=== PATIENT | male | born 1980 | race African-American/Black ===

== ENCOUNTER 2016-09-28 09:49 | Emergency (ER) | payer SELFPAY ==
[2016-09-28] MEDS ORDERED: predniSONE 20 MG Tab PO ONE (09:57)
[2016-09-28] MEDS ORDERED: Albuterol/Ipratropium 3.0-0.5 MG/3 ML Neb Soln NEB ONE ×2 (09:57→10:41)
--- NOTE | 2016-09-28 10:03 | EDM.PDOC ---
ED HPI GENERAL MEDICAL PROBLEM - General Chief Complaint: Respiratory Problem Stated Complaint: SOB Time Seen by Provider: 09/28/16 09:55 Source of Information: Reports: Patient History Limitations: Reports: No Limitations - History of Present Illness INITIAL COMMENTS - FREE TEXT/NARRATIVE: The patient presents with shortness of breath. He says this started last night. He has a history of asthma and he uses an inhaler. He denies fever or chills. He has a slight cough when he is trying to clear his throat. He has no abdominal pain, nausea or vomiting. He does have some chest tightness. Onset: Gradual Duration: Day(s): (Last night) Location: Reports: Chest Quality: Reports: Other (Tightness) Severity: Moderate Improves with: Reports: None Worsens with: Reports: Movement Associated Symptoms: Reports: Chest Pain, Cough, Shortness of Breath. Denies: Fever/Chills, Nausea/Vomiting - Related Data Allergies Allergy/AdvReac Type Severity Reaction Status Date / Time morphine Allergy Rash Verified 09/28/16 09:55 Home Meds: Home Meds Albuterol Sulfate [Proventil Hfa] 2 puff INH Q6H PRN 09/28/16 [History] Albuterol [IJD: Albuterol HFA] 2 puff .XX Q6HR PRN #8 gm 09/28/16 [Rx] Prednisone [IJD: predniSONE] 40 mg PO WITHBREAKFAST #10 tab 09/28/16 [Rx] ED ROS GENERAL - Review of Systems Review Of Systems: See Below Constitutional: Reports: No Symptoms HEENT: Reports: No Symptoms Respiratory: Reports: Shortness of Breath, Wheezing, Cough Cardiovascular: Reports: Chest Pain (Tightness) Endocrine: Reports: No Symptoms GI/Abdominal: Reports: No Symptoms : Reports: No Symptoms Musculoskeletal: Reports: No Symptoms ED EXAM, GENERAL - Physical Exam Exam: See Below Exam Limited By: No Limitations General Appearance: Alert, No Apparent Distress Ears: Normal External Exam Nose: Normal Inspection Head: Atraumatic, Normocephalic Neck: Normal Inspection Respiratory/Chest: Respiratory Distress (Mild), Wheezing Cardiovascular: Regular Rate, Rhythm, No Edema, No Murmur GI/Abdominal: Soft, Non-Tender, No Organomegaly, No Mass Extremities: Normal Inspection Course - Vital Signs Last Recorded V/S: Last Vital Signs Temp 96.9 F 09/28/16 09:52 Pulse 97 09/28/16 09:52 Resp 20 09/28/16 09:52 BP 137/79 09/28/16 09:52 Pulse Ox 95 09/28/16 10:04 - Orders/Labs/Meds Orders: Active Orders 24 hr Category Date Time Status RT Aerosol Therapy [RC] ASDIRECTED Care 09/28/16 09:57 Active RT Aerosol Therapy [RC] ASDIRECTED Care 09/28/16 10:41 Active Meds: Medications Discontinued Medications Generic Name Dose Route Start Last Admin Trade Name Freq PRN Reason Stop Dose Admin Albuterol/Ipratropium 3 ml 09/28/16 09:57 09/28/16 10:03 Duoneb 3.0-0.5 Mg/3 Ml NEB 09/28/16 09:58 3 ml ONETIME ONE Administration Albuterol/Ipratropium 3 ml 09/28/16 10:41 09/28/16 10:47 Duoneb 3.0-0.5 Mg/3 Ml NEB 09/28/16 10:42 3 ml ONETIME ONE Administration Prednisone 40 mg 09/28/16 09:57 09/28/16 10:18 Prednisone PO 09/28/16 09:58 40 mg ONETIME ONE Administration - Re-Assessments/Exams Free Text/Narrative Re-Assessment/Exam: 09/28/16 10:04 I ordered a duoneb and prednisone 40mg by mouth. 09/28/16 10:41 He sounds better and feels better but he still has some wheezing. I ordered another duoneb. I will give him a prescription for albuterol and prednisone for 5 days. 09/28/16 10:56 He is doing better. I will discharge him home. Departure - Departure Time of Disposition: 11:00 Disposition: Home, Self-Care 01 Condition: Good Clinical Impression: Exacerbation of asthma - Discharge Information Prescriptions: Albuterol [IJD: Albuterol HFA] 2 puff .XX Q6HR PRN #8 gm PRN Reason: Wheezing Prednisone [IJD: predniSONE] 40 mg PO WITHBREAKFAST #10 tab Referrals: Opal Ramon PA-C [[facility]] - 1 Week Forms: ED Department Discharge Additional Instructions: Take the prednisone daily for 5 days. Take the albuterol inhaler 2 puffs every 6 hours as needed for shortness of breathing and wheezing. - My Orders Last 24 Hours: My Active Orders 09/28/16 09:57 RT Aerosol Therapy [RC] ASDIRECTED 09/28/16 10:41 RT Aerosol Therapy [RC] ASDIRECTED - Assessment/Plan Last 24 Hours: My Active Orders 09/28/16 09:57 RT Aerosol Therapy [RC] ASDIRECTED 09/28/16 10:41 RT Aerosol Therapy [RC] ASDIRECTED
[2016-09-28 11:07] VITALS: BP 138/77
== END 2016-09-28 11:05 | disposition home or self-care (01) ==
LOC: JD.ED 09:49
DX: J45.901 Unspecified asthma with (acute) exacerbation (principal); Z88.5 Allergy status to narcotic agent
CPT/HCPCS: 94640; 94664; 99285; A9270; 99283